=== PATIENT | female | born 2000 | race Caucasian/White ===

== ENCOUNTER 2025-04-29 09:27 | Inpatient (IN) ==
[2025-04-29] MEDS ORDERED: LIDOCAINE 1% LOCAL 20 ML VIAL INFIL PRN (09:33)
[2025-04-29] MEDS ORDERED: OXYTOCIN 30 UNITS/NSS 30 UNITS/500 ML BAG IV PRN (09:33)
--- NOTE | 2025-04-29 09:55 | History & Physical Report ---
Date of Service April 29, 2025 Assessment & Plan (1) Encounter for supervision of normal intrauterine in primigravida, antepartum: (2) Cholestasis: Abdirizak Armando is a 25 y/o female currently at 38 5/7 WGA with an MARY CARMEN 05/09/25 as determined by Ultrasound who is here for induction secondary to probable cholestasis with elevated liver enzymes without signs of pre-eclampsia. Her was complicated by transaminitis discovered on 04/18/25. Pending cholestasis labs. Pt presenting with normal vitals and urine, denial of pre- eclamptic symptoms. Allison bulb was placed yesterday evening and fell out overnight. Pt is GBS positive - Initiate Pitocin starting at 2 and increasing by 2 for labor augmentation - Consider amniotomy to further assist with augmentation of labor - Start IV penicillin 6mu loading dose, f/b 3mu - Start mIVF of LR at 125mls/hr - NPO until delivery - Pt currently deferring epidural, but may consider as labor progresses- Will place consult for anesthesiology should pt elect to receive an epidural Admission and Anticipated Discharge Date Admission Date: April 29, 2025 History of Present Illness Primary Care Provider: Kayleigh Ly MD Prabha is a 25 y/o female currently at 38 5/7 WGA with an MARY CARMEN 05/09/25 as determined by Ultrasound who is here for induction secondary to probable cholestasis with elevated liver enzymes without signs of pre-eclampsia. Her was complicated by transaminitis discovered on 04/18/25. regular contractions; regular movement; no fluid loss; no bloody show Had regular appointments with OB. Labs: Blood Type A Positive 10/18/24 Antibody Screen NEGATIVE 10/18/24 Hgb 13.4 g/dl (12.0-16.0) 02/14/25 Hct 39.0 % (37.0-47.0) 02/14/25 MCV 83.8 fL (80.0-100.0) 10/18/24 Plt Count 317 K/uL (130-400) 10/18/24 Rubella IgG Antibody Immune (Immune) 10/18/24 Treponema pallidum Ab Negative (Negative) 02/14/25 Hep Bs Antigen Negative (Negative) 10/18/24 Hepatitis C Antibody Negative (Negative) 10/18/24 HIV 1&2 Ab/P24 Ag 4thGn Negative (Negative) 10/18/24 Glucose 1 Hr 50 gm 145 mg/dl (70-130) H 02/14/25 OB Optional Labs: Chlamydia trachomatis RNA Not Detected (NotDetected) 10/18/24 Neisseria gonorrhoeae RNA Not Detected (NotDetected) 10/18/24 Labs Reviewed: Extended carrier screening negative--mln Declines cfdna--mln H.9 (today) Hct: 37.7 (today) WBC: 12.29 (today) Plt: 217 (today) GBS: positive Allergies Allergy/AdvReac Type Severity Reaction Status Date / Time No Known Allergies Allergy Verified 04/28/25 19:45 Home Medications Medication Instructions Recorded Confirmed Type vitamins-iron fumarate 65 1 tab PO HS 05/08/24 04/28/25 History mg iron-folic acid 1 mg tablet omega-3 fatty acids [Fish Oil] PO 10/11/24 04/28/25 History Patient History Medical History Varicella vaccination Surgical History (Updated 04/29/25 @ 10:47 by Malaika Dalal RN) [place] teeth removed No pertinent past surgical history Family History Mother Basal cell carcinoma Grandfather (Paternal) Myocardial infarction Grandfather (Maternal) Myocardial infarction Brother Heart murmur Denies family history of Ovarian cancer Prostate cancer Diabetes Heart disease Kidney disease Breast cancer Colorectal cancer Hypertension Social History Smoking Status: Never smoker Second Hand Exposure: No; Do You Dip or Chew Tobacco: No; Hx Alcohol Use: No Hx Substance Use: No Preferred Language: French Communication Ability: Effective Visual Impairment: No Limitations Hearing Ability: Normal Beliefs That Will Affect Care: None marital status: marital status details: Dar Argueta (23) [phone] Current Living Situation: Spouse Current Living Situation Comment: Lives with , no pets current occupational status: unemployed Feels Safe at Home: Yes Childhood Exposure to Second-Hand Smoke: No Diet: regular caffeine: No Dental Care, Regularly: Yes Physical Activity Frequency: Daily Seatbelt Use: always Sunscreen Use: Yes Assistive Devices: None Review of Systems Denies fever, chills, sweats Denies shortness of breath, difficulty breathing, chest pain, palpitations, chest pressure. Denies breast pain. Denies dysuria. Denies headache or changes in vision. Physical Exam Physical Exam: General: Alert, oriented. No acute distress. Cardiac: Regular rate and rhythm, no murmurs/rubs/gallops. Respiratory: No increased work of breathing. Symmetrical chest rise. No respiratory distress. Abdomen: Gravid Pelvic: Dilation 3cm; Effacement 75%; Station -[address] Capone Lower Extremities: No lower extremity edema or swelling. No deep calf pain. Cira's negative bilaterally Code Status & VTE Plan VTE Prophylaxis Plan VTE Prophylaxis will be ordered: No Monitoring External Monitor External FHT and external uterine monitors used; Category 1 tracing; moderate FHT variability. Supervising Physician Co-Signing Physician Notes Resident Physician Supervision Note: I interviewed and examined the patient. Discussed with Dr. Abdi and agree with findings and plan as documented in the note. 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 Patinet was having itching and elevated lfts (without s/s of pet). Bile acids pending now for 10 days. Discussion had with mfm, who recommend delivery by 39 weeks. Fetus category one. allison out and more favorable cervix. Plan pitocin induction. GBS coverage. arom when indicated. Anticipate . Documented By: Gloria Capone MD, FACOG Resident Activity Tracking Resident Involvement: Resident Care Provided Care Provided: [facility]
[2025-04-29] MEDS: LACTATED RINGER'S 1,000 ML IV PRN (09:58)
[2025-04-29 10:07] LABS: Hematocrit (blood only) 37.7 % (37.0-47.0); Hemoglobin 12.9 g/dl (12.0-16.0); Mean Corpuscular Hemoglobin 28.9 pg (25.0-34.0); Mean Corpuscular Hgb Conc 34.2 g/dL (32.0-36.0); Mean Corpuscular Volume 84.5 fL (80.0-100.0); Mean Platelet Volume 10.7 fL (9.4-12.4); Platelet Count 217 K/uL (130-400); RDW Coefficient of Variation 13.7 % (11.5-14.5); RDW Standard Deviation 41.8 fL (36.4-46.3); Red Blood Count 4.46 M/uL (4.20-5.40); White Blood Count 12.29 K/ul (4.8-10.8)
[2025-04-29] MEDS: OXYTOCIN 30 UNITS/NSS 30 UNITS/500 ML BAG IV PRN (10:32)
[2025-04-29] MEDS: PENICILLIN GK 6 MU in DEXTROSE 5% 250 ML IV STA (10:33)
[2025-04-29] MEDS: PENICILLIN GK 3 MU in DEXTROSE 5% 100 ML IV PRN (14:35)
--- NOTE | 2025-04-29 15:17 | Labor Progress Brief Note ---
Date of Service April 29, 2025 Subjective noting contractions, not particularly painful Assessment & Plan (1) Cholestasis: (2) Encounter for induction of labor: Plan continue current management. fetus category one. anticipate . Admission and Anticipated Discharge Date Admission Date: April 29, 2025 Physical Exam Physical Exam: cx--4/75/-2/post arom--clear toco--q2-3min, pit at 14 efm--130s with mod variability, accels to 160s, no decels Results & Data Vital Signs (Past 12 Hours) Vital Signs Temp Pulse Resp BP 04/29/25 15:09 20 04/29/25 15:09 37.2 C 20 04/29/25 15:09 72 04/29/25 15:09 126/80 04/29/25 10:46 37.1 C 85 22 123/73 04/29/25 10:06 85 123/73 Coding Level of Care Code None Diagnoses Cholestasis K83.1 Encounter for induction of labor Z34.90
--- NOTE | 2025-04-29 20:01 | Labor Progress Brief Note ---
Date of Service April 29, 2025 Subjective contractions getting stronger, still doing well Assessment & Plan (1) Encounter for induction of labor: (2) Cholestasis: Plan no change since rom, pit at 20 for 1.5 hours. Discussed options of continuing pit at 20 for a bit and seeing if she will change vs. iupc and increasing pitocin. She choses the former. Recheck in a few hours to check for progress. Admission and Anticipated Discharge Date Admission Date: April 29, 2025 Physical Exam Physical Exam: cx--unchanged toco--q2-4, pit at 4 efm--140s with mod varaibility, accels to 160s, no decels Results & Data Vital Signs (Past 12 Hours) Vital Signs Temp Pulse Resp BP 04/29/25 19:10 37.0 C 18 04/29/25 19:10 37.0 C 04/29/25 19:03 78 04/29/25 19:03 125/76 04/29/25 18:11 74 04/29/25 18:11 110/68 04/29/25 17:11 19 04/29/25 17:11 37.3 C 19 04/29/25 17:11 67 04/29/25 17:11 110/68 04/29/25 16:10 71 04/29/25 16:10 111/69 04/29/25 15:09 20 04/29/25 15:09 37.2 C 20 04/29/25 15:09 72 04/29/25 15:09 126/80 04/29/25 10:46 37.1 C 85 22 123/73 04/29/25 10:06 85 123/73 Coding Level of Care Code None Diagnoses Encounter for induction of labor Z34.90 Cholestasis K83.1
--- NOTE | 2025-04-30 03:03 | Labor Progress Brief Note ---
Date of Service April 30, 2025 Subjective Patient notes more uncomfortable, tired. Assessment & Plan (1) Encounter for induction of labor: Plan Halved pit and back up to 20 for 2 hours without much change. Discussed needs more pitocin and recommend iupc . She is agreeable and would like epidural first. fetus category one. Admission and Anticipated Discharge Date Admission Date: April 29, 2025 Physical Exam Physical Exam: cx--4/75/-2 toco==q3-4min efm--145 with mod variabilitiy, accels to 170s, no decels Results & Data Vital Signs (Past 12 Hours) Vital Signs Temp Pulse Resp BP 04/30/25 02:00 87 107/62 04/30/25 01:21 36.9 C 04/30/25 01:04 78 122/71 04/29/25 23:04 89 04/29/25 23:04 125/73 04/29/25 23:00 37.3 C 04/29/25 21:15 37.4 C 04/29/25 21:04 73 04/29/25 21:04 122/66 04/29/25 19:10 37.0 C 18 04/29/25 19:10 37.0 C 04/29/25 19:03 78 04/29/25 19:03 125/76 04/29/25 18:11 74 04/29/25 18:11 110/68 04/29/25 17:11 19 04/29/25 17:11 37.3 C 19 04/29/25 17:11 67 04/29/25 17:11 110/68 04/29/25 16:10 71 04/29/25 16:10 111/69 04/29/25 15:09 20 04/29/25 15:09 37.2 C 20 04/29/25 15:09 72 04/29/25 15:09 126/80 Coding Level of Care Code None Diagnoses Encounter for induction of labor Z34.90
[2025-04-30] MEDS: LIDOCAINE 2%/EPINEPHRINE 1:200,000 20 ML PF ONE (03:37)
[2025-04-30] MEDS: BUPIVACAINE 0.25% PF 30 ML VIAL ONE (03:37)
[2025-04-30] MEDS: fentANYL 2 MCG/ML BUPIVacaine 0.125%-NSS 100ML BAG ONE (03:37)
[2025-04-30] MEDS: ePHEDrine sulfate 50 MG/ML AMP ONE (03:45)
--- NOTE | 2025-04-30 03:51 | Anesthesiology Consultation ---
Date of Service April 30, 2025 Assessment & Plan Chart Review Chart Review: Acceptable Risk for Labor Epidural Consults Requested none History Height/Weight Height: 5 ft 7 in Weight: 95.254 kg Allergies Allergy/AdvReac Type Severity Reaction Status Date / Time No Known Allergies Allergy Verified 04/28/25 19:45 Medications Home Medications Medication Instructions Recorded Confirmed Last Taken vitamins-iron fumarate 65 1 tab PO HS 05/08/24 04/28/25 04/27/25 21:00 mg iron-folic acid 1 mg tablet omega-3 fatty acids [Fish Oil] PO 10/11/24 04/28/25 04/27/25 21:00 Active Medications Generic Name Dose Route Start Last Admin Trade Name Freq PRN Reason Stop Dose Admin Lactated Ringer's 1,000 mls @ 125 mls/hr 04/29/25 09:33 04/29/25 18:41 Lr IV 05/01/25 09:32 125 mls/hr .Q8H PRN Administration L&D Protocol Protocol Penicillin G Potassium 3 mu/ 106 mls @ 100 mls/hr 04/29/25 12:33 04/30/25 03:00 Dextrose IV 05/09/25 12:32 100 mls/hr Q4H PRN Administration GBS(+) Until Delivery Oxytocin 30 units in 500 mls @ 18 mls/hr 04/29/25 09:34 04/30/25 00:10 Pitocin 30 Units/Nss IV 05/01/25 09:33 1.08 units/hr .Q24H PRN 18 mls/hr Labor Induction/Augmentation Titration Protocol 1.08 UNITS/HR Past Medical History Medical History (Updated 04/29/25 @ 15:16 by Gloria Capone MD, FACOG) Varicella vaccination Past Family History Family History Mother Basal cell carcinoma Grandfather (Paternal) Myocardial infarction Grandfather (Maternal) Myocardial infarction Brother Heart murmur Denies family history of Ovarian cancer Prostate cancer Diabetes Heart disease Kidney disease Breast cancer Colorectal cancer Hypertension Past Surgical History Surgical History (Updated 04/29/25 @ 10:47 by Malaika Dalal RN) [place] teeth removed No pertinent past surgical history Social History Smoking Status: Never smoker Do You Dip or Chew Tobacco: No Hx Alcohol Use: No Hx Substance Use: No substance use type: does not use Physical Exam Vital Signs Last Vital Signs Temp 36.9 C 04/30/25 01:21 Pulse 116 H 04/30/25 03:47 Resp 18 04/29/25 19:10 BP 111/56 L 04/30/25 03:47 Pulse Ox 100 04/30/25 03:45 Testing Laboratory Results 04/29/25 09:49
[2025-04-30] MEDS ORDERED: BUPIVACAINE 0.25% PF 30 ML VIAL EPI PRN (03:59)
[2025-04-30] MEDS ORDERED: fentaNYL citrate PF 100 MCG/2 ML VIAL EPI PRN (03:59)
[2025-04-30] MEDS ORDERED: ePHEDrine sulfate 50 MG/ML AMP IV PRN (03:59)
[2025-04-30] MEDS ORDERED: LIDOCAINE 2% MPF LOCAL 5 ML VIAL EPI PRN (03:59)
[2025-04-30] MEDS ORDERED: ROPIVACAINE 0.5% PF 5 MG/ML 20 ML VIAL EPI PRN (03:59)
[2025-04-30] MEDS ORDERED: NALOXONE HCL 0.4 MG/1 ML VIAL/CARP IV PRN (03:59)
[2025-04-30] MEDS ORDERED: NALBUPHINE HCL INJ 10 MG/ML AMP IV PRN (03:59)
[2025-04-30] MEDS ORDERED: NALOXONE HCL 1 MG in SODIUM CHLORIDE 0.9% 1,000 ML IV PRN (03:59)
[2025-04-30] MEDS ORDERED: SODIUM CHLORIDE 0.9% PF INJ 10 ML VIAL EPI PRN (03:59)
[2025-04-30] MEDS: diphenhydrAMINE 50 MG/ML VIAL IV PRN (09:15)
--- NOTE | 2025-04-30 09:20 | Labor Progress Brief Note ---
Date of Service April 30, 2025 Subjective Reason For Note: Routine Evaluation pitocin at 30 milliunits for 3 hours and contraction pattern is stillonly every 4-5 minutes IUPC had been placed and contractions are consistently adequate in strength FHT Category 1 cervix 5cm/80/-2 Assessment & Plan (1) Encounter for induction of labor: Plan: will try stopping pit for 30 minutes, hydrate with 1 liter of fluid and then restart pitocin by half. also replace current pitocin bag. will also give IV benadryl now to see if it helps with cervical effacement. I suspect the slow progression of labor is because of inadequate contraction frequency so hopefully these interventions will help. Admission and Anticipated Discharge Date Admission Date: April 29, 2025 Results & Data Vital Signs (Past 12 Hours) Vital Signs Temp Pulse Resp BP Pulse Ox O2 Del Method 04/30/25 09:15 77 100 04/30/25 09:14 78 94 04/30/25 09:10 96 H 100 04/30/25 09:09 94 H 111/57 L 04/30/25 09:05 101 H 100 04/30/25 09:00 109 H 100 04/30/25 08:56 93 H 141/60 H 04/30/25 08:55 96 H 100 04/30/25 08:50 98 H 99 04/30/25 08:45 106 H 100 04/30/25 08:40 101 H 116/70 100 04/30/25 08:35 91 H 100 04/30/25 08:30 91 H 18 99 04/30/25 08:25 100 04/30/25 08:25 108 H 04/30/25 08:25 100 H 126/59 L 04/30/25 08:20 108 H 100 04/30/25 08:15 101 H 100 04/30/25 08:10 100 04/30/25 08:10 121 H 04/30/25 08:10 101 H 136/58 L 04/30/25 08:05 103 H 100 04/30/25 08:00 102 H 18 100 04/30/25 07:55 100 04/30/25 07:55 105 H 04/30/25 07:55 96 H 118/56 L 04/30/25 07:50 112 H 100 04/30/25 07:45 87 100 04/30/25 07:40 108 H 99 06/21/25 07:39 108 H 126/71 04/30/25 07:35 114 H 100 04/30/25 07:30 98.4 F 96 H 16 100 04/30/25 07:25 93 H 99 04/30/25 07:24 107 H 120/61 04/30/25 07:20 95 H 100 04/30/25 07:19 98.4 F 107 H 16 122/61 04/30/25 07:19 Room Air 04/30/25 07:17 105 H 122/61 04/30/25 07:15 101 H 100 04/30/25 07:10 83 100 04/30/25 07:09 96 H 124/66 04/30/25 07:05 92 H 100 04/30/25 07:00 93 H 99 04/30/25 06:55 91 H 100 04/30/25 06:54 86 123/71 04/30/25 06:53 99 H 93 04/30/25 06:50 91 H 100 04/30/25 06:45 116 H 100 04/30/25 06:40 117 H 100 04/30/25 06:39 106 H 120/66 04/30/25 06:35 115 H 100 04/30/25 06:30 87 100 04/30/25 06:25 93 H 100 04/30/25 06:24 88 120/67 04/30/25 06:20 96 H 100 04/30/25 06:15 95 H 100 04/30/25 06:10 90 100 04/30/25 06:09 91 H 120/63 04/30/25 06:05 86 100 04/30/25 06:01 99.0 F 04/30/25 06:00 98 H 100 04/30/25 05:58 105 H 94 04/30/25 05:55 79 100 04/30/25 05:54 85 116/66 04/30/25 05:50 79 100 04/30/25 05:45 79 100 04/30/25 05:40 87 100 04/30/25 05:39 73 116/58 L 04/30/25 05:35 75 100 04/30/25 05:30 77 97 04/30/25 05:25 67 98 04/30/25 05:24 70 113/55 L 04/30/25 05:20 63 97 04/30/25 05:15 71 97 04/30/25 05:10 97 04/30/25 05:10 68 04/30/25 05:10 100 H 111/60 04/30/25 05:05 70 97 04/30/25 05:00 66 98 04/30/25 04:55 73 99 04/30/25 04:54 93 H 110/57 L 04/30/25 04:50 99 H 98 04/30/25 04:45 87 99 04/30/25 04:40 77 97 04/30/25 04:39 70 107/57 L 04/30/25 04:35 74 96 04/30/25 04:30 67 98 04/30/25 04:25 83 99 04/30/25 04:24 85 114/62 04/30/25 04:20 83 99 04/30/25 04:15 80 99 04/30/25 04:10 89 100 04/30/25 04:07 94 H 102/64 04/30/25 04:05 77 98 04/30/25 04:02 96 H 110/65 04/30/25 04:00 99.0 F 101 H 99 04/30/25 03:57 105 H 107/61 04/30/25 03:55 102 H 98 04/30/25 03:52 114 H 109/58 L 04/30/25 03:50 115 H 100 04/30/25 03:47 116 H 111/56 L 04/30/25 03:45 100 04/30/25 03:45 117 H 04/30/25 03:45 101 H 118/61 04/30/25 03:43 125 H 105/56 L 04/30/25 03:42 93 H 113/62 04/30/25 03:40 77 99 04/30/25 03:38 82 91/53 L 04/30/25 03:37 83 79/42 L 04/30/25 03:36 118 H 113/59 L 04/30/25 03:35 119 H 100 04/30/25 03:30 89 100 04/30/25 03:25 109 H 100 04/30/25 03:20 91 H 100 04/30/25 03:15 79 100 04/30/25 03:13 80 115/70 04/30/25 03:10 85 100 04/30/25 02:00 87 107/62 04/30/25 01:21 98.4 F 04/30/25 01:04 78 122/71 04/29/25 23:04 89 04/29/25 23:04 125/73 04/29/25 23:00 99.1 F Coding Level of Care Code 18311 SUB INP/OBS CARE 12/04MIN Diagnoses Encounter for induction of labor Z34.90
[2025-04-30] MEDS: OXYTOCIN 30 UNITS/NSS 30 UNITS/500 ML BAG IV SCH (09:27)
[2025-04-30] MEDS ORDERED: OXYTOCIN 30 UNITS/NSS 30 UNITS/500 ML BAG IV PRN ×2 (09:34→21:51)
[2025-04-30] MEDS: LACTATED RINGER'S 1,000 ML IV ONE (09:48)
[2025-04-30] MEDS: fentANYL 2 MCG/ML BUPIVacaine 0.125%-NSS 100ML BAG EPI PRN (13:13)
--- NOTE | 2025-04-30 14:15 | Labor Progress Brief Note ---
Date of Service April 30, 2025 Subjective Reason For Note: Routine Evaluation pitocin now at 30 milliunits again after wash out period FHT's category 1 contractions still q 4 minutes with adequate contraction strength. (50 mmHg) cervix 5cm/90/-2 feels asynclitic position cervix now more anterior. will recheck in 1 hour , if still no significant change then will proceed with LTCS Assessment & Plan Admission and Anticipated Discharge Date Admission Date: April 29, 2025 Results & Data Vital Signs (Past 12 Hours) Vital Signs Temp Pulse Resp BP Pulse Ox O2 Del Method 04/30/25 14:09 96 H 110/59 L 04/30/25 14:05 86 99 04/30/25 14:00 84 98 04/30/25 13:55 80 99 04/30/25 13:54 78 106/59 L 04/30/25 13:50 78 99 04/30/25 13:45 78 99 04/30/25 13:40 80 99 04/30/25 13:39 92 H 102/57 L 04/30/25 13:35 97 H 98 04/30/25 13:30 96 H 18 100 04/30/25 13:25 97 H 100 04/30/25 13:24 118 H 111/65 04/30/25 13:20 127 H 95 04/30/25 13:15 109 H 100 04/30/25 13:10 119 H 88 L 04/30/25 13:05 119 H 100 04/30/25 13:00 136 H 100 04/30/25 12:58 18 04/30/25 12:58 98.8 F 18 04/30/25 12:55 104 H 100 04/30/25 12:54 94 H 98/54 L 04/30/25 12:50 98 H 100 04/30/25 12:45 76 100 04/30/25 12:40 80 100 04/30/25 12:39 81 97/51 L 04/30/25 12:35 72 100 04/30/25 12:30 83 16 100 04/30/25 12:27 97 H 93 04/30/25 12:25 80 99 04/30/25 12:24 90 110/69 04/30/25 12:20 101 H 100 04/30/25 12:15 86 100 04/30/25 12:10 84 99 04/30/25 12:09 92 H 106/59 L 04/30/25 12:05 93 H 100 04/30/25 12:00 90 18 100 04/30/25 11:55 87 98/58 L 99 04/30/25 11:50 76 99 04/30/25 11:45 99 H 100 04/30/25 11:40 102 H 100 04/30/25 11:38 96 H 92 04/30/25 11:35 86 100 04/30/25 11:30 97 H 100 04/30/25 11:25 88 100 04/30/25 11:24 98 H 108/63 04/30/25 11:20 91 H 100 04/30/25 11:15 87 100 04/30/25 11:10 109 H 100 04/30/25 11:09 95 H 110/62 04/30/25 11:05 98.6 F 102 H 92 04/30/25 11:01 18 04/30/25 11:01 18 04/30/25 11:00 97 H 100 04/30/25 10:55 100 04/30/25 10:55 89 04/30/25 10:55 107 H 92 04/30/25 10:54 106 H 124/61 04/30/25 10:50 87 98 04/30/25 10:45 82 99 04/30/25 10:40 85 100 04/30/25 10:39 96 H 126/67 04/30/25 10:35 85 99 04/30/25 10:30 100 H 14 99 04/30/25 10:25 98 H 100 04/30/25 10:24 98 H 127/64 04/30/25 10:20 87 100 04/30/25 10:15 85 100 04/30/25 10:10 100 04/30/25 10:10 85 04/30/25 10:10 89 127/66 04/30/25 10:05 85 100 04/30/25 10:00 91 H 16 100 04/30/25 09:55 86 100 04/30/25 09:54 90 125/71 04/30/25 09:50 86 100 04/30/25 09:45 81 100 04/30/25 09:40 95 H 100 04/30/25 09:39 83 117/73 04/30/25 09:35 98 H 99 04/30/25 09:33 80 90 04/30/25 09:30 80 16 100 04/30/25 09:25 100 04/30/25 09:25 81 04/30/25 09:25 82 104/57 L 04/30/25 09:20 90 100 04/30/25 09:15 98.6 F 77 100 04/30/25 09:14 78 94 04/30/25 09:10 96 H 100 04/30/25 09:09 94 H 111/57 L 04/30/25 09:05 101 H 100 04/30/25 09:00 109 H 18 100 04/30/25 08:56 93 H 141/60 H 04/30/25 08:55 96 H 100 04/30/25 08:50 98 H 99 04/30/25 08:45 106 H 100 04/30/25 08:40 101 H 116/70 100 04/30/25 08:35 91 H 100 04/30/25 08:30 91 H 18 99 04/30/25 08:25 100 04/30/25 08:25 108 H 04/30/25 08:25 100 H 126/59 L 04/30/25 08:20 108 H 100 04/30/25 08:15 101 H 100 04/30/25 08:10 100 04/30/25 08:10 121 H 04/30/25 08:10 101 H 136/58 L 04/30/25 08:05 103 H 100 04/30/25 08:00 102 H 18 100 04/30/25 07:55 100 04/30/25 07:55 105 H 04/30/25 07:55 96 H 118/56 L 04/30/25 07:50 112 H 100 04/30/25 07:45 87 100 04/30/25 07:40 108 H 99 04/30/25 07:39 108 H 126/71 04/30/25 07:35 114 H 100 04/30/25 07:30 98.4 F 96 H 16 100 04/30/25 07:25 93 H 99 04/30/25 07:24 107 H 120/61 04/30/25 07:20 95 H 100 04/30/25 07:19 98.4 F 107 H 16 122/61 04/30/25 07:19 Room Air 04/30/25 07:17 105 H 122/61 04/30/25 07:15 101 H 100 04/30/25 07:10 83 100 04/30/25 07:09 96 H 124/66 04/30/25 07:05 92 H 100 04/30/25 07:00 93 H 99 04/30/25 06:55 91 H 100 04/30/25 06:54 86 123/71 04/30/25 06:53 99 H 93 04/30/25 06:50 91 H 100 04/30/25 06:45 116 H 100 04/30/25 06:40 117 H 100 04/30/25 06:39 106 H 120/66 04/30/25 06:35 115 H 100 04/30/25 06:30 87 100 04/30/25 06:25 93 H 100 04/30/25 06:24 88 120/67 04/30/25 06:20 96 H 100 04/30/25 06:15 95 H 100 04/30/25 06:10 90 100 04/30/25 06:09 91 H 120/63 04/30/25 06:05 86 100 04/30/25 06:01 99.0 F 04/30/25 06:00 98 H 100 04/30/25 05:58 105 H 94 04/30/25 05:55 79 100 04/30/25 05:54 85 116/66 04/30/25 05:50 79 100 04/30/25 05:45 79 100 04/30/25 05:40 87 100 04/30/25 05:39 73 116/58 L 04/30/25 05:35 75 100 04/30/25 05:30 77 97 04/30/25 05:25 67 98 04/30/25 05:24 70 113/55 L 04/30/25 05:20 63 97 04/30/25 05:15 71 97 04/30/25 05:10 97 04/30/25 05:10 68 04/30/25 05:10 100 H 111/60 04/30/25 05:05 70 97 04/30/25 05:00 66 98 04/30/25 04:55 73 99 04/30/25 04:54 93 H 110/57 L 04/30/25 04:50 99 H 98 04/30/25 04:45 87 99 04/30/25 04:40 77 97 04/30/25 04:39 70 107/57 L 04/30/25 04:35 74 96 04/30/25 04:30 67 98 04/30/25 04:25 83 99 04/30/25 04:24 85 114/62 04/30/25 04:20 83 99 04/30/25 04:15 80 99 04/30/25 04:10 89 100 04/30/25 04:07 94 H 102/64 04/30/25 04:05 77 98 04/30/25 04:02 96 H 110/65 04/30/25 04:00 99.0 F 101 H 99 04/30/25 03:57 105 H 107/61 04/30/25 03:55 102 H 98 04/30/25 03:52 114 H 109/58 L 04/30/25 03:50 115 H 100 04/30/25 03:47 116 H 111/56 L 04/30/25 03:45 100 04/30/25 03:45 117 H 04/30/25 03:45 101 H 118/61 04/30/25 03:43 125 H 105/56 L 04/30/25 03:42 93 H 113/62 04/30/25 03:40 77 99 04/30/25 03:38 82 91/53 L 04/30/25 03:37 83 79/42 L 04/30/25 03:36 118 H 113/59 L 04/30/25 03:35 119 H 100 04/30/25 03:30 89 100 04/30/25 03:25 109 H 100 04/30/25 03:20 91 H 100 04/30/25 03:15 79 100 04/30/25 03:13 80 115/70 04/30/25 03:10 85 100 Coding Level of Care Code 83661 SUB INP/OBS CARE
--- NOTE | 2025-04-30 17:07 | Labor Progress Brief Note ---
Date of Service April 30, 2025 Subjective Reason For Note: Routine Evaluation feeling some pressure ctns now Q3-4 minutes rim/100/-2 FHT's category 1 continue pit at 30 milliunits Assessment & Plan Admission and Anticipated Discharge Date Admission Date: April 29, 2025 Results & Data Vital Signs (Past 12 Hours) Vital Signs Temp Pulse Resp BP Pulse Ox O2 Del Method 04/30/25 17:00 87 99 04/30/25 16:56 18 04/30/25 16:56 98.4 F 18 04/30/25 16:55 97 H 96 04/30/25 16:54 93 H 137/62 04/30/25 16:50 92 H 99 04/30/25 16:45 100 04/30/25 16:45 88 04/30/25 16:45 79 91 04/30/25 16:40 116 H 97 04/30/25 16:38 91 H 89 L 04/30/25 16:35 88 99 04/30/25 16:30 85 99 04/30/25 16:25 84 98 04/30/25 16:24 113 H 118/63 04/30/25 16:22 104 H 86 L 04/30/25 16:20 96 H 99 04/30/25 16:15 94 H 98 04/30/25 16:10 98 04/30/25 16:10 115 H 04/30/25 16:10 114 H 113/71 04/30/25 16:05 82 99 04/30/25 16:00 90 100 04/30/25 15:55 91 H 99 04/30/25 15:54 89 119/75 04/30/25 15:50 82 98 04/30/25 15:45 16 04/30/25 15:45 98.2 F 87 16 98 04/30/25 15:40 93 H 98 04/30/25 15:39 91 H 113/67 04/30/25 15:35 97 H 98 04/30/25 15:30 86 18 99 04/30/25 15:25 95 H 98 04/30/25 15:24 88 121/70 04/30/25 15:20 84 98 04/30/25 15:15 95 H 99 04/30/25 15:11 120 H 137/88 93 04/30/25 15:10 105 H 100 04/30/25 15:05 110 H 99 04/30/25 15:00 101 H 16 98 04/30/25 14:55 90 98 04/30/25 14:54 103 H 104/55 L 04/30/25 14:50 103 H 98 04/30/25 14:45 93 H 98 04/30/25 14:40 96 H 98 04/30/25 14:39 86 109/62 04/30/25 14:35 82 97 04/30/25 14:30 83 100 04/30/25 14:25 86 98 04/30/25 14:24 82 108/57 L 04/30/25 14:20 100 H 98 04/30/25 14:15 81 99 04/30/25 14:10 93 H 99 04/30/25 14:09 96 H 110/59 L 04/30/25 14:05 86 99 04/30/25 14:00 84 18 98 04/30/25 13:55 80 99 04/30/25 13:54 78 106/59 L 04/30/25 13:50 78 99 04/30/25 13:45 78 99 04/30/25 13:40 80 99 04/30/25 13:39 92 H 102/57 L 04/30/25 13:35 97 H 98 04/30/25 13:30 96 H 18 100 04/30/25 13:25 97 H 100 04/30/25 13:24 118 H 111/65 04/30/25 13:20 127 H 95 04/30/25 13:15 109 H 100 04/30/25 13:10 119 H 88 L 04/30/25 13:05 119 H 100 04/30/25 13:00 136 H 100 04/30/25 12:58 18 04/30/25 12:58 98.8 F 18 04/30/25 12:55 104 H 100 04/30/25 12:54 94 H 98/54 L 04/30/25 12:50 98 H 100 04/30/25 12:45 76 100 04/30/25 12:40 80 100 04/30/25 12:39 81 97/51 L 04/30/25 12:35 72 100 04/30/25 12:30 83 16 100 04/30/25 12:27 97 H 93 04/30/25 12:25 80 99 04/30/25 12:24 90 110/69 04/30/25 12:20 101 H 100 04/30/25 12:15 86 100 04/30/25 12:10 84 99 04/30/25 12:09 92 H 106/59 L 04/30/25 12:05 93 H 100 04/30/25 12:00 90 18 100 04/30/25 11:55 87 98/58 L 99 04/30/25 11:50 76 99 04/30/25 11:45 99 H 100 04/30/25 11:40 102 H 100 04/30/25 11:38 96 H 92 04/30/25 11:35 86 100 04/30/25 11:30 97 H 100 04/30/25 11:25 88 100 04/30/25 11:24 98 H 108/63 04/30/25 11:20 91 H 100 04/30/25 11:15 87 100 04/30/25 11:10 109 H 100 04/30/25 11:09 95 H 110/62 04/30/25 11:05 98.6 F 102 H 92 04/30/25 11:01 18 04/30/25 11:01 18 04/30/25 11:00 97 H 100 04/30/25 10:55 100 04/30/25 10:55 89 04/30/25 10:55 107 H 92 04/30/25 10:54 106 H 124/61 04/30/25 10:50 87 98 04/30/25 10:45 82 99 04/30/25 10:40 85 100 04/30/25 10:39 96 H 126/67 04/30/25 10:35 85 99 04/30/25 10:30 100 H 14 99 04/30/25 10:25 98 H 100 04/30/25 10:24 98 H 127/64 04/30/25 10:20 87 100 04/30/25 10:15 85 100 04/30/25 10:10 100 04/30/25 10:10 85 04/30/25 10:10 89 127/66 04/30/25 10:05 85 100 04/30/25 10:00 91 H 16 100 04/30/25 09:55 86 100 04/30/25 09:54 90 125/71 04/30/25 09:50 86 100 04/30/25 09:45 81 100 04/30/25 09:40 95 H 100 04/30/25 09:39 83 117/73 04/30/25 09:35 98 H 99 04/30/25 09:33 80 90 04/30/25 09:30 80 16 100 04/30/25 09:25 100 04/30/25 09:25 81 04/30/25 09:25 82 104/57 L 04/30/25 09:20 90 100 04/30/25 09:15 98.6 F 77 100 04/30/25 09:14 78 94 04/30/25 09:10 96 H 100 04/30/25 09:09 94 H 111/57 L 04/30/25 09:05 101 H 100 04/30/25 09:00 109 H 18 100 04/30/25 08:56 93 H 141/60 H 04/30/25 08:55 96 H 100 04/30/25 08:50 98 H 99 04/30/25 08:45 106 H 100 04/30/25 08:40 101 H 116/70 100 04/30/25 08:35 91 H 100 04/30/25 08:30 91 H 18 99 04/30/25 08:25 100 04/30/25 08:25 108 H 04/30/25 08:25 100 H 126/59 L 04/30/25 08:20 108 H 100 04/30/25 08:15 101 H 100 04/30/25 08:10 100 04/30/25 08:10 121 H 04/30/25 08:10 101 H 136/58 L 04/30/25 08:05 103 H 100 04/30/25 08:00 102 H 18 100 04/30/25 07:55 100 04/30/25 07:55 105 H 04/30/25 07:55 96 H 118/56 L 04/30/25 07:50 112 H 100 04/30/25 07:45 87 100 04/30/25 07:40 108 H 99 04/30/25 07:39 108 H 126/71 04/30/25 07:35 114 H 100 04/30/25 07:30 98.4 F 96 H 16 100 04/30/25 07:25 93 H 99 04/30/25 07:24 107 H 120/61 04/30/25 07:20 95 H 100 04/30/25 07:19 98.4 F 107 H 16 122/61 04/30/25 07:19 Room Air 04/30/25 07:17 105 H 122/61 04/30/25 07:15 101 H 100 04/30/25 07:10 83 100 04/30/25 07:09 96 H 124/66 04/30/25 07:05 92 H 100 04/30/25 07:00 93 H 99 04/30/25 06:55 91 H 100 04/30/25 06:54 86 123/71 04/30/25 06:53 99 H 93 04/30/25 06:50 91 H 100 04/30/25 06:45 116 H 100 04/30/25 06:40 117 H 100 04/30/25 06:39 106 H 120/66 04/30/25 06:35 115 H 100 04/30/25 06:30 87 100 04/30/25 06:25 93 H 100 04/30/25 06:24 88 120/67 04/30/25 06:20 96 H 100 04/30/25 06:15 95 H 100 04/30/25 06:10 90 100 04/30/25 06:09 91 H 120/63 04/30/25 06:05 86 100 04/30/25 06:01 99.0 F 04/30/25 06:00 98 H 100 04/30/25 05:58 105 H 94 04/30/25 05:55 79 100 04/30/25 05:54 85 116/66 04/30/25 05:50 79 100 04/30/25 05:45 79 100 04/30/25 05:40 87 100 04/30/25 05:39 73 116/58 L 04/30/25 05:35 75 100 04/30/25 05:30 77 97 04/30/25 05:25 67 98 04/30/25 05:24 70 113/55 L 04/30/25 05:20 63 97 04/30/25 05:15 71 97 04/30/25 05:10 97 04/30/25 05:10 68 04/30/25 05:10 100 H 111/60 Coding Level of Care Code 56356 SUB INP/OBS CARE 12/04MIN
[2025-04-30] MEDS: miSOPROStoL 200 MCG TAB PR ONE (21:22)
[2025-04-30] MEDS: METHYLERGONOVINE MALEATE 0.2 MG/ML AMP IM ONE (21:22)
[2025-04-30] MEDS ORDERED: HYDROCORTISONE ACETATE 25 MG SUPP PR PRN (21:51)
[2025-04-30] MEDS ORDERED: oxyCODONE/ACETAMINOPHEN 5mg/325mg TAB PO PRN (21:51)
[2025-04-30] MEDS ORDERED: ACETAMINOPHEN 325 MG TAB PO PRN (21:51)
[2025-04-30] MEDS ORDERED: BENZOCAINE 20% SPRY 85 APPLN/85 GM CAN EXT PRN (21:51)
[2025-04-30] MEDS ORDERED: DIPHTHER/TETAN/PERTUS Vaccine (Tdap, Adol/Adult) 0.5mL IM ONE (21:51)
--- NOTE | 2025-04-30 22:17 | Delivery Summary ---
Vaginal Delivery Summary Date of Service April 30, 2025 Vaginal Delivery Summary and 1st Degree LAC (right labial) Patient is a 25-year-old 1 P0 female EDC of 05/09/2025 who presents at 38-4/7 weeks for induction of labor because of cholestasis of . She initially had a cervical balloon placed which fell out prior to her arrival back in labor and delivery on 04/29 Pitocin was begun per protocol. After 2 washout sessions and continuing Pitocin after that at 30 milliunits, she progressed to full dilation. She pushed effectively over intact perineum for delivery of a viable female infant. Loose nuchal cord was reduced after the head was delivered followed by a loose shoulder cord that reduced spontaneously. The shoulders were delivered without maternal effort. The rest of the infant delivered easily was placed on the mother's abdomen for further attention and drying. She has good respiratory effort but poor tone, and therefore she was taken to the baby bed for further evaluation and stimulation. Prior to this, the cord was clamped and cut at approximately 1 minute of life. After cord blood was obtained, the placenta was expressed intact with a three-vessel cord. Because of the prolonged labor requiring maximum doses of Pitocin, 1000 mcg of rectal Cytotec were given as well as 0.2 mg of Methergine. bleeding was also controlled with fundal massage and dilute Pitocin. A first-degree right labial laceration was repaired with 3-0 chromic. A superficial left labial laceration was not bleeding and therefore not repaired. Mother and infant were doing well after delivery. QBL is 786 mL MNPG Vaginal Delivery Charge Delivery Type Details: and 1st Degree LAC (right labial)
[2025-05-01] MEDS ORDERED: miSOPROStoL 200 MCG TAB ONE (05:09)
[2025-05-01] MEDS ORDERED: METHYLERGONOVINE MALEATE 0.2 MG/ML AMP ONE (05:10)
[2025-05-01 06:25] LABS: Hematocrit (blood only) 36.3 % (37.0-47.0); Hemoglobin 11.8 g/dl (12.0-16.0); Mean Corpuscular Hemoglobin 28.3 pg (25.0-34.0); Mean Corpuscular Hgb Conc 32.5 g/dL (32.0-36.0); Mean Corpuscular Volume 87.1 fL (80.0-100.0); Mean Platelet Volume 11.1 fL (9.4-12.4); Platelet Count 230 K/uL (130-400); RDW Coefficient of Variation 13.8 % (11.5-14.5); RDW Standard Deviation 43.4 fL (36.4-46.3); Red Blood Count 4.17 M/uL (4.20-5.40)
[2025-05-01] MEDS: SODIUM CHLORIDE 0.9% PF INJ 10 ML VIAL ONE (07:19)
[2025-05-01] MEDS: fentaNYL citrate PF 100 MCG/2 ML VIAL ONE (07:19)
[2025-05-01] MEDS: BUPIVACAINE 0.25% PF 30 ML VIAL EPI STA (07:19)
[2025-05-01] MEDS: fentaNYL citrate PF 100 MCG/2 ML VIAL EPI STA (07:20)
[2025-05-01] MEDS: LIDOCAINE 2%/EPINEPHRINE 1:200,000 20 ML PF EPI STA (07:20)
[2025-05-01] MEDS: SODIUM CHLORIDE 0.9% PF INJ 10 ML VIAL EPI STA (07:20)
[2025-05-01] MEDS: DOCUSATE SODIUM 100 MG CAP PO SCH (08:03)
[2025-05-01] MEDS: IBUPROFEN 600 MG TAB PO PRN (08:03)
[2025-05-01] MEDS: PRENATAL VITAMIN 1 TAB PO SCH (08:03)
--- NOTE | 2025-05-01 08:36 | Obstetrical Progress Note ---
Date of Service May 01, 2025 Assessment & Plan (1) Encounter for care and examination after delivery: satisfactory exam continue current care plan Subjective Ambulation: ambulating normally Voiding: no voiding problems Passing Gas:: Yes Diet Tolerance:: regular diet Lochia:: Small Feeding Type:: breast feeding bottom sore this morning but otherwise feels well- did get some sleep last night. Review of Systems All systems reviewed & are unremarkable except as noted in HPI & below Results & Data Vital Signs (Past 12 Hours) Vital Signs Temp Pulse Pulse Resp BP BP Pulse Ox 05/01/25 04:47 98.2 F 83 18 118/78 04/30/25 23:30 99.9 F H 95 H 20 114/74 04/30/25 23:27 95 H 114/74 04/30/25 23:25 18 04/30/25 23:17 114 H 110/64 04/30/25 23:02 93 H 124/68 04/30/25 22:55 18 04/30/25 22:47 90 120/67 04/30/25 22:32 93 H 126/72 04/30/25 22:25 18 04/30/25 22:21 97 H 141/62 H 04/30/25 22:17 93 H 141/67 H 04/30/25 22:10 18 04/30/25 22:02 102 H 130/83 04/30/25 21:55 18 04/30/25 21:46 91 H 119/75 04/30/25 21:40 98.8 F 18 04/30/25 21:39 122 H 113/65 04/30/25 21:33 96 H 97 04/30/25 21:28 97 H 99 04/30/25 21:24 96 H 114/72 04/30/25 21:23 97 H 97 04/30/25 21:22 107 H 116/77 04/30/25 21:18 107 H 97 04/30/25 21:13 126 H 98 04/30/25 21:09 131 H 94 04/30/25 21:08 140 H 100 04/30/25 21:03 128 H 99 04/30/25 21:02 119 H 88 L 04/30/25 20:58 129 H 100 04/30/25 20:56 104 H 90 04/30/25 20:53 101 H 99 04/30/25 20:48 98 H 100 04/30/25 20:43 139 H 100 04/30/25 20:40 111 H 127/74 04/30/25 20:38 117 H 100 O2 Del Method 05/01/25 04:47 Room Air 04/30/25 23:30 Room Air 04/30/25 23:27 04/30/25 23:25 04/30/25 23:17 04/30/25 23:02 04/30/25 22:55 04/30/25 22:47 04/30/25 22:32 04/30/25 22:25 04/30/25 22:21 04/30/25 22:17 04/30/25 22:10 04/30/25 22:02 04/30/25 21:55 04/30/25 21:46 04/30/25 21:40 Room Air 04/30/25 21:39 04/30/25 21:33 04/30/25 21:28 04/30/25 21:24 04/30/25 21:23 04/30/25 21:22 04/30/25 21:18 04/30/25 21:13 04/30/25 21:09 04/30/25 21:08 04/30/25 21:03 04/30/25 21:02 04/30/25 20:58 04/30/25 20:56 04/30/25 20:53 04/30/25 20:48 04/30/25 20:43 04/30/25 20:40 04/30/25 20:38
--- NOTE | 2025-05-01 12:01 | Anesthesia Procedure Note ---
Date of Service May 01, 2025 Anesthesia Post Epidural Note Vital Signs Vital Signs: Temp Pulse Resp BP Pulse Ox O2 Del Method 36.7 C 79 16 124/84 99 Room Air 05/01/25 11:15 05/01/25 11:15 05/01/25 11:15 05/01/25 11:15 05/01/25 11:15 05/01/25 11:15 Pain Intensity Perineal: Pain Intensity: 3 Abdomen: Pain Intensity: 1 Notes Mental Status: alert / awake / arousable Nausea / Vomiting: adequately controlled Pain: adequately controlled Airway Patency, RR, SpO2: stable & adequate BP & HR: stable & adequate Hydration State: stable & adequate Neuraxial Anesthesia: was administered and sensory block is resolving Anesthetic Complications: no major complications apparent Epidural: Removed without complications and With tip intact
[2025-05-01] MEDS: bisacodyL 5 MG TABEC PO SCH (20:21)
[2025-05-02 06:01] LABS: Hemoglobin 11.1 g/dl (12.0-16.0)
[2025-05-02 06:21] LABS: Albumin Level 3.1 gm/dl (3.4-5.0); Bilirubin Direct 0.1 mg/dl (0-0.2); Bilirubin,Total 0.4 mg/dl (0.2-1.0); Total Protein 6.1 gm/dl (6.0-8.3)
--- NOTE | 2025-05-02 06:32 | Obstetrical Progress Note ---
Date of Service May 02, 2025 Assessment & Plan (1) Encounter for care and examination after delivery: (2) Cholestasis: Plan Pt is 25 yo post- day 1 s/p at 38w4d induced due to probable cholestasis. Pt is feeling well and ready to DC home after meeting with java consultant - Encourage ambulation, meet with insurance follow up specialist today - Encourage breast feeding - Pain control with Tylenol and ibuprofen - Anticipate DC today Admission and Anticipated Discharge Date Admission Date: April 29, 2025 Supervising Physician Co-Signing Physician Notes Resident Physician Supervision Note: I interviewed and examined the patient. Discussed with Dr. Abdi and agree with findings and plan as documented in the note. Any exceptions or clarifications are listed here: liver enzymes are still mildly elevated but trending downward. will recheck labs at 6 weeks visit. Documented By: Meg Miller MD, FACOG Subjective Pt is 25 yo post- day 1 s/p at 38w4d induced due to probable cholestasis. Ambulation:In and out of room Voiding:voiding normally Passing gas: yes BM: yes Diet tolerance:regular diet Lochia:bloody, no clots Feeding type: breast Current pain level: 1-2 /10 improved with ibuprofen Resting comfortably this morning in NAD. Pt reports baby has a shallow latch and had some difficulty with feeding over night Denies DAWN, CP, SOB, N/V/D, LE pain/swelling. Review of Systems Review of Systems: As per HPI Physical Exam Constitutional: WD/WN, vitals as above Respiratory: normal respiratory effort, lungs clear to auscultation Cardiovascular: RRR, no murmur, no edema Gastrointestinal (Abdomen): normal bowel sounds, soft, nontender, no hepatosplenomegaly Uterine fundus firm and at 2 cm below level of umbilicus Neurologic: PERRL, EOMI, accommodation nl, no face palsy, no dysarthria Moving all 4 extremities on command Psychiatric: A+Ox3, euthymic affect Results & Data Vital Signs (Past 12 Hours) Vital Signs Temp Pulse Resp BP O2 Del Method 05/01/25 20:19 36.8 C 71 18 108/73 Room Air Resident Activity Tracking Resident Involvement: Resident Care Provided Care Provided: Adult Hospital Medicine
[2025-05-02 06:45] VITALS: RESP 16
[2025-05-02 07:55] VITALS: BP 121/73; PULSE 65; TEMP 98.4; O2SAT 99
[2025-05-02] MEDS ORDERED: bisacodyL 10 MG SUPP PR PRN (21:51)
== END 2025-05-02 10:17 | disposition home or self-care (01) | DRG 805 ==
LOC: 4S1 09:27 → 4E2 05-01 00:13